=== PATIENT | male | born 1990 | race Caucasian/White ===

== ENCOUNTER 2021-11-06 03:06 | Emergency (ER) | payer OTHER, SELFPAY | END 2021-11-06 04:39 | disposition home or self-care (01) | LOC: CSHERS 03:06 | DX: S60.221A Contusion of right hand, initial encounter (principal); W22.09XA Striking against other stationary object, initial encounter ==

== ENCOUNTER 2022-05-13 07:45 | Emergency (ER) | payer SELFPAY ==
[2022-05-13] MEDS ORDERED: predniSONE 20 MG TAB ONE (08:53)
== END 2022-05-13 09:45 | disposition home or self-care (01) ==
LOC: CSHERS 07:45
DX: M10.9 Gout, unspecified (principal)
CPT/HCPCS: J7512